=== PATIENT | female | born 1985 | race Caucasian/White ===

== ENCOUNTER → 2018-06-08 08:55 | Outpatient (CLI) | payer OTHER, SELFPAY | PROVIDERS: Visit Provider Obstetrics & Gynecology | DX: Z34.91 Encounter for supervision of normal pregnancy, unspecified, first trimester (principal); Z3A.00 Weeks of gestation of pregnancy not specified ==

== ENCOUNTER → 2018-06-14 08:51 | Outpatient (CLI) | payer OTHER, SELFPAY ==
[2018-06-14 10:15] LABS: Add Manual Diff / Slide Review NO; Basophils Percent Auto 0.2 % (0-2); Eosinophils Percent Auto 1.2 % (2-4); Hemoglobin 14.5 g/dL (12.0-16.0); Lymphocytes Percent Auto 18.2 % (25-40); Mean Corpuscular HGB Conc 35.4 % (30-36); Mean Corpuscular Hemoglobin 33.3 PG (26-34); Mean Corpuscular Volume 94.2 fL (80-100); Monocytes Percent Auto 4.9 % (3-14); Neutrophils Absolute Auto 5800 /uL (3000-5900); Neutrophils Percent Auto 75.5 % (50-75); Platelet Count 182 X10^3/uL (150-400); Red Blood Cell Count 4.36 X10^6/uL (4.0-5.2); Red Cell Distribution Width 12.4 % (11.6-14.8); White Blood Cell Count 7.6 X10^3/uL (4.5-11.0)
[2018-06-14 10:40] LABS: Hepatitis B Surface Antigen NEGATIVE s/c (NEGATIVE)
[2018-06-14 11:04] LABS: HIV 1 and 2 Antibody NEGATIVE (NEGATIVE); Hep C Virus Ab w/Reflex Quant NEGATIVE s/c (NEGATIVE)
[2018-06-14 11:20] LABS: Appearance Urine UA CLEAR; Bilirubin Urine UA NEGATIVE (NEGATIVE); Color Urine UA YELLOW; Glucose Urine UA NEGATIVE (Normal); Ketones Urine UA NEGATIVE (NEGATIVE); Leukocyte Esterase Urine UA NEGATIVE (NEGATIVE); Nitrite Urine UA NEGATIVE (Negative); Occult Blood Urine UA NEGATIVE (Negative); Protein Urine UA NEGATIVE (Negative); Urobilinogen Urine UA 0.2 E.U./dL (0.2)
[2018-06-15 11:39] LABS: RPR Screen Nonreactive (Nonreactive)
[2018-06-15 14:09] LABS: HSV1IGG 1.99 index (< 0.90)
== END ==
PROVIDERS: Visit Provider Obstetrics & Gynecology
DX: Z34.91 Encounter for supervision of normal pregnancy, unspecified, first trimester (principal)
CPT/HCPCS: 36415; 80055; 81003; 81507; 86695; 86696; 86703; 86787; 86803; 86850; 86900; 86901

== ENCOUNTER → 2018-06-16 16:08 | Outpatient (CLI) | payer OTHER, SELFPAY ==
--- NOTE | 2018-06-16 10:03 | DI.US.S_ITS ---
PROCEDURE: US OB LIMITED INDICATIONS: Viability and Dating OUTSIDE/PRIOR DATING DATA: Last menstrual period (LMP): 03/07/18. LMP-based estimated date of delivery (NICOLAS): 11/23/18. First dating scan (date and location): 06/16/18. Estimated date of delivery (NICOLAS) from first dating scan: 12/10/18. TECHNIQUE: Real-time scanning was performed of the fetus, with image documentation. Endovaginal scanning: No COMPARISON: None. FINDINGS: A single living intrauterine gestation is present. Presentation: Variable. Placenta: Placental position is anterior , without previa. Amniotic fluid index: Subjectively normal. heart rate: 153 beats per minute. Maternal cervical canal: 4.1 cm long. Normal lower limit is 2.5 cm. Estimated gestational age from today's scan: 14 weeks 5 days based on biparietal diameter, head circumference, abdominal circumference and femur length.. IMPRESSION: 1. 14 week 5 day single living IUP. Followup anatomic survey recommended. Dictated by: Roldan Stuart [facility] Interpreted: Deny Sims MD on 06/17/2018 at 12:03 Approved by: Deny Sims M.D. on 06/17/2018 at 12:25
== END ==
PROVIDERS: Visit Provider Obstetrics & Gynecology
DX: Z34.02 Encounter for supervision of normal first pregnancy, second trimester (principal); Z3A.14 14 weeks gestation of pregnancy
CPT/HCPCS: 76815

== ENCOUNTER → 2018-06-24 15:02 | Outpatient (CLI) | payer OTHER, SELFPAY ==
[2018-07-06 13:27] LABS: Informaseq SEE SEPERATE REPORT
== END ==
PROVIDERS: Visit Provider Obstetrics & Gynecology
DX: O09.529 Supervision of elderly multigravida, unspecified trimester (principal)
CPT/HCPCS: 36415; 81507

== ENCOUNTER → 2018-08-06 15:27 | Outpatient (CLI) | payer OTHER, SELFPAY ==
--- NOTE | 2018-08-06 15:30 | DI.US.S_ITS ---
PROCEDURE: US OB >= 14 WEEKS FETUS INDICATIONS: anatomy survey OUTSIDE/PRIOR DATING DATA: Last menstrual period (LMP): 03/07/18. LMP-based estimated date of delivery (NICOLAS): 11/23/18. First dating scan (date and location): 06/16/18. Estimated date of delivery (NICOLAS) from first dating scan: 12/10/18. TECHNIQUE: Real-time scanning was performed of the fetus, with image documentation and biometric measurements. Endovaginal scanning: No COMPARISON: None. FINDINGS: General: A single living intrauterine gestation is present. Presentation: Vertex. Placenta: Placental position is anterior, without previa. Amniotic fluid index: 15.6 cm, normal range is 5-24 cm. heart rate: 147 beats per minute. Maternal cervical canal: 4.0 cm long. Normal lower limit is 2.5 cm. biometrics: Biparietal diameter: 21 weeks 3 days Head circumference: 21 weeks 4 days Abdominal circumference: 20 weeks 4 days Femur length: 21 weeks 4 days Estimated gestational age from initial scan: not applicable. Composite gestational age from present scan: 21 weeks 2 days Estimated weight and percentile: 401 g; 10 percentile Measurement variability for biometric dating: +/- 7 days from 14 weeks to 15 weeks 6 days gestation, +/- 10 days from 16 weeks to 21 weeks 6 days gestation, +/- 2 weeks from 22 weeks to 27 weeks 6 days gestation, +/- 3 weeks for 28 weeks gestation or later. weight reference: 4500 g or EFW >90/95% is considered macrosomia or large for gestational age. EFW <10% is small for gestational age. EFW 5% or less is considered intra-uterine growth restriction. Anatomic survey: Neuro: Ventricles are non-dilated at less than 10 mm. Cisterna magna is normal at 3-11 mm. Cerebellum is normal in size and morphology. Nuchal skin fold: Normal at less than 6 mm between 14-21 weeks gestational age. Face: Nose and lips, facial profile are normal. Spine: No evidence for spina bifida. Heart: 4-chambered heart is present, with normal ventricular outflow tracts. Diaphragm: Diaphragm is intact. Stomach: Left-sided stomach is present. Kidneys: No hydronephrosis. Normal is less than 5 mm in 2nd trimester, less than 7 mm in 3rd trimester. Cord: 3-vessel cord has orthotopic insertion. Bladder: Normal in size. Extremities: All 4 extremities identified. IMPRESSION: Single living fetus redemonstrated and interval growth lower limits of normal. Normal anatomic survey. Dictated by: Roldan Stuart [facility] Interpreted: Hadley Saul MD on 08/06/2018 at 16:47 Approved by: Hadley Saul M.D. on 08/06/2018 at 19:02
== END ==
PROVIDERS: Visit Provider Obstetrics & Gynecology
DX: Z36.89 Encounter for other specified antenatal screening (principal); Z34.82 Encounter for supervision of other normal pregnancy, second trimester; Z3A.21 21 weeks gestation of pregnancy
CPT/HCPCS: 76811

== ENCOUNTER → 2018-08-12 16:04 | Outpatient (CLI) | payer OTHER, SELFPAY ==
[2018-08-12 20:35] LABS: Urine N gonorrhoeae NOT DETECTED
[2018-08-12 22:44] LABS: Urine Chlamydia NOT DETECTED
[2018-08-19 09:00] LABS: AFP, Serum 77.9 ng/mL; Calc Gestational Age 22.7; Maternal Weight 145 lbs; Number of Fetuses 1; Prev Pregnancies Down Syndrome NOT GIVEN; Risk of ONTD UNAVAILABLE
== END ==
PROVIDERS: Visit Provider Obstetrics & Gynecology
DX: O09.529 Supervision of elderly multigravida, unspecified trimester (principal); Z3A.22 22 weeks gestation of pregnancy; Z34.82 Encounter for supervision of other normal pregnancy, second trimester
CPT/HCPCS: 36415; 82105; 87491; 87591

== ENCOUNTER → 2018-09-24 13:35 | Outpatient (CLI) | payer OTHER, SELFPAY ==
[2018-09-24 15:19] LABS: Hematocrit 37.1 % (36-46); Hemoglobin 12.9 g/dL (12.0-16.0)
[2018-09-24 15:30] LABS: GTT (PREG) 1 Hour PP 50gm Dose 160 mg/dL (76-139)
== END ==
PROVIDERS: Visit Provider Obstetrics & Gynecology
DX: Z3A.27 27 weeks gestation of pregnancy (principal)
CPT/HCPCS: 36415; 82950; 85014; 85018

== ENCOUNTER → 2018-10-08 08:44 | Outpatient (CLI) | payer OTHER, SELFPAY ==
[2018-10-08 09:22] LABS: Glucose Fasting Gestational 80 mg/dL (76-95)
[2018-10-08 11:13] LABS: Glucose 1 Hour Gest 110 mg/dL (76-180)
[2018-10-08 11:30] LABS: Glucose 2 Hour Gest 121 mg/dL (76-155)
[2018-10-08 12:03] LABS: Glucose Tol Interp,Gestational INTERPRETATION
[2018-10-08 12:38] LABS: Glucose 3 Hour Gest 97 mg/dL (76-140)
== END ==
PROVIDERS: Visit Provider Obstetrics & Gynecology
DX: O99.810 Abnormal glucose complicating pregnancy (principal)
CPT/HCPCS: 36415; 82951; 82952

== ENCOUNTER 2018-11-10 07:33 | Emergency (ER) | payer OTHER, SELFPAY ==
[2018-11-10 07:53] VITALS: BP 109/69; PULSE 109; RESP 20; TEMP 36.1; O2SAT 97
--- NOTE | 2018-11-10 08:03 | DI.US.S_ITS ---
PROCEDURE: US OB LIMITED INDICATIONS: SEVERE CRAMPING, @ 35 OUTSIDE/PRIOR DATING DATA: Last menstrual period (LMP): 03/07/18. LMP-based estimated date of delivery (NICOLAS): 12/12/18. First dating scan (date and location): 06/16/18. Estimated date of delivery (NICOLAS) from first dating scan: 12/10/18. TECHNIQUE: Real-time scanning was performed of the fetus, with image documentation. COMPARISON: [facility], OB LIMITED, 06/16/2018, 16:41. FINDINGS: A single living intrauterine gestation is present. Presentation: Vertex Placenta: Placental position is anterior fundal, without previa. Amniotic fluid index: 13.7 cm, normal range is 5-24 cm. heart rate: 155 beats per minute. Maternal cervical canal: The cervix was not well seen secondary to the adjacent head. The visualized portions the cervix appeared closed without endocervical fluid. Estimated gestational age from initial scan: 35 weeks 3 days. IMPRESSION: 1. Single living intrauterine in vertex position redemonstrated. 2. Limited visualization of the cervix demonstrates no definite endocervical fluid. 3. GAVI within normal limits. Dictated by: Yefri Griffin M.D. on 11/10/2018 at 9:10 Approved by: Yefri Griffin M.D. on 11/10/2018 at 9:24
[2018-11-10] MEDS: SODIUM CHLORIDE 0.9% 1,000 ML 1000 ML IV ×2 (08:21→09:02)
[2018-11-10] MEDS: ONDANSETRON 4 MG/2 ML INJ IV (08:21)
--- NOTE | 2018-11-10 08:22 | ED.NAVMDI ---
HPI - Nausea/Vomiting/Diarrhea General Chief complaint: Nausea/Vomiting/Diarrhea Stated complaint: NAUSEA, CRAMPING, DIARHREA, VOMITING Time Seen by Provider: 11/10/18 07:35 Source: patient and family Mode of arrival: ambulatory Limitations: no limitations History of Present Illness HPI Narrative: 33-year-old female nonsmoker otherwise healthy is a at 35 weeks with a normal this time around. Her last was complicated by labor. She presents to us with a chief complaint of nausea vomiting and a few episodes of diarrhea that started last evening. She denies any fever or chills. She denies dysuria, frequency or urgency. She has had no chest pain, shortness of breath or cough. She has had no vaginal bleeding or discharge. She has had no leakage of fluids. Her pain is crampy and episodically sharp and stabbing MD complaint: nausea, vomiting, diarrhea and abdominal pain Onset (ago): hour(s) Description of Vomiting: food contents Description of Diarrhea: watery Associated Abdominal Pain: Yes Location of pain: diffuse Radiation: diffuse Severity: moderate Quality: cramping and stabbing Pain Consistency: intermittent Relieving factors: none Exacerbating factors: none Associated symptoms: denies other symptoms Related Data Home Medications Medication Instructions Recorded Confirmed 1 tab PO DAILY 06/14/18 06/14/18 vitamin,calcium,pqjrvehq-excr-fycwi acid tablet Previous Rx's Medication Instructions Recorded ondansetron 4 mg PO TID-QID PRN #10 tab 11/10/18 ondansetron 4 mg PO TID-QID PRN #10 tab 11/10/18 Allergies Allergy/AdvReac Type Severity Reaction Status Date / Time No Known Drug Allergies Allergy Unverified 06/14/18 08:50 Review of Systems Constitutional Denies chills, Denies fever(s), Denies lethargy and Denies weakness Eyes Denies change in vision, Denies eye discharge, Denies irritation and Denies loss of vision ENT Ears, Nose, Mouth, and Throat: Denies change in voice, Denies neck pain and Denies sore throat Cardiovascular Denies chest pain, Denies irregular heart rhythm, Denies lightheadedness, Denies palpitations, Denies dyspnea, Denies dyspnea on exertion and Denies orthopnea Respiratory Denies cough, Denies dyspnea, Denies dyspnea on exertion and Denies wheezing Gastrointestinal Gastrointestinal: Reports abdominal pain, Denies change in bowel habits, Reports diarrhea, Reports nausea and Reports vomiting Genitourinary Denies hematuria, Denies flank pain, Denies urinary incontinence and Denies urinary urgency Musculoskeletal Denies neck pain Integumentary/Breasts Denies pruritus, Denies erythema, Denies rash and Denies wounds Neurologic Denies confusion, Denies loss of vision and Denies weakness Psychiatric Denies anxiety, Denies confusion, Denies depression, Denies homicidal ideation and Denies suicidal ideation Endocrine Denies palpitations Hematologic/Lymphatic Denies easy bruising Allergic/Immunologic Denies wheezing PFSH Social History Smoking Status: Never smoker Social History Smoking Status: Never smoker Exam Narrative Exam Narrative: GENERAL: 33-year-old female is obviously feeling quite uncomfortable, holding an emesis bag HEAD: Atraumatic. Normocephalic. No temporal or scalp tenderness. EYES: Pupils equal round and reactive. Extraocular motions intact. ENT: Nose without bleeding, purulent drainage or septal hematoma. Throat without erythema, tonsillar hypertrophy or exudate. Uvula midline. Airway patent. NECK: Trachea midline. No JVD or lymphadenopathy. Supple, nontender, no meningeal signs. CARDIOVASCULAR: Regular rate and rhythm without murmurs, gallops, or rubs. RESPIRATORY: Clear to auscultation. Breath sounds equal bilaterally. No wheezes, rales, or rhonchi. GASTROINTESTINAL: Abdomen soft, gravid with fundus above the umbilicus, increased bowel sounds EXTREMITIES: No clubbing, cyanosis, or edema. No joint tenderness, effusion, or edema noted. BACK: Nontender without deformity or crepitance. No flank tenderness. NEURO: AOx3. SKIN: No rash or erythema. Initial Vital Signs Initial Vital Signs: Vital Signs Temperature 97.0 F L 11/10/18 07:53 Pulse Rate 109 H 11/10/18 07:53 Respiratory Rate 20 11/10/18 07:53 Blood Pressure 109/69 11/10/18 07:53 Pulse Oximetry 97 11/10/18 07:53 Course Orders Ordered: Discontinued Medications Sodium Chloride (Normal Saline 0.9%) 1,000 mls @ 1,000 mls/hr IV BOLUS ONE Stop: 11/10/18 09:02 Last Infusion: 11/10/18 09:00 Dose: 0 mls/hr Admin: 11/10/18 08:21 Dose: 1,000 mls/hr Sodium Chloride (Normal Saline 0.9%) 1,000 mls @ 1,000 mls/hr IV BOLUS ONE Stop: 11/10/18 09:59 Last Infusion: 11/10/18 10:05 Dose: 0 mls/hr Admin: 11/10/18 09:02 Dose: 1,000 mls/hr Ondansetron HCl (Zofran) 4 mg IV Q4HR PRN PRN Reason: Nausea And Vomiting Last Admin: 11/10/18 08:21 Dose: 4 mg Vital Signs - 8 hr 11/10/18 07:53 Temperature 97.0 F L Pulse Rate 109 H Respiratory Rate 20 Blood Pressure 109/69 Pulse Oximetry 97 MDM - Nausea/Vomiting/Diarrhea Medical Records Attestation: I reviewed the patient's medical records. Lab Data Attestation: I reviewed the patient's lab results. Result diagrams: 11/10/18 08:15 11/10/18 08:15 Lab Results 11/10/18 11/10/18 11/10/18 Range/Units 08:15 08:15 08:20 WBC 13.8 H (4.5-11.0) X10^3/uL RBC 4.38 (4.0-5.2) X10^6/uL Hgb 14.3 (12.0-16.0) g/dL Hct 42.0 (36-46) % MCV 95.9 (80-100) fL MCH 32.7 (26-34) PG MCHC 34.1 (30-36) % RDW 12.7 (11.6-14.8) % Plt Count 169 (150-400) X10^3/uL Neut % (Auto) 90.8 H (50-75) % Lymph % (Auto) 4.4 L (25-40) % [place] % (Auto) 4.2 (3-14) % Eos % (Auto) 0.4 L (2-4) % Baso % (Auto) 0.2 (0-2) % Neut # (Auto) 24808 H (5564-6518) /uL Lymph # (Auto) 600 L (0104-0437) /uL [place] # (Auto) 600 (0-900) /uL Eos # (Auto) 100 (0-450) /uL Baso # (Auto) 0 (0-100) /uL Sodium 134 L (137-145) mmol/L Potassium 4.0 (3.4-5.1) mmol/L Chloride 102 (98-107) mmol/L Carbon Dioxide 23 (22-32) mmol/L BUN 10 (7-17) mg/dL Creatinine 0.60 (0.52-1.04) mg/dL Estimated GFR > 60.0 (>60) mL/min BUN/Creatinine Ratio 16.7 (6-22) Glucose 90 (70-100) mg/dL Calcium 8.6 (8.4-10.2) mg/dL Urine RBC None seen (0-5/HPF) Urine WBC 5-10/hpf H (0-5/HPF) Ur Squamous Epith Cells 5-10 /hpf H Urine Bacteria None seen (None) Ur Culture Indicated? Cult not indicated Influenza A & B (PCR) (Negative) 11/10/18 Range/Units 08:35 WBC (4.5-11.0) X10^3/uL RBC (4.0-5.2) X10^6/uL Hgb (12.0-16.0) g/dL Hct (36-46) % MCV (80-100) fL MCH (26-34) PG MCHC (30-36) % RDW (11.6-14.8) % Plt Count (150-400) X10^3/uL Neut % (Auto) (50-75) % Lymph % (Auto) (25-40) % [place] % (Auto) (3-14) % Eos % (Auto) (2-4) % Baso % (Auto) (0-2) % Neut # (Auto) (0576-1618) /uL Lymph # (Auto) (7547-9409) /uL [place] # (Auto) (0-900) /uL Eos # (Auto) (0-450) /uL Baso # (Auto) (0-100) /uL Sodium (137-145) mmol/L Potassium (3.4-5.1) mmol/L Chloride (98-107) mmol/L Carbon Dioxide (22-32) mmol/L BUN (7-17) mg/dL Creatinine (0.52-1.04) mg/dL Estimated GFR (>60) mL/min BUN/Creatinine Ratio (6-22) Glucose (70-100) mg/dL Calcium (8.4-10.2) mg/dL Urine RBC (0-5/HPF) Urine WBC (0-5/HPF) Ur Squamous Epith Cells Urine Bacteria (None) Ur Culture Indicated? Influenza A & B (PCR) Negative (Negative) Urine Dip Bedside Urine Glucose Negative Bedside Urine Bilirubin + 1 Bedside Urine Ketone +/- 5 Urine Specific [place] 1.010 Bedside Urine Occult Blood - Negative Bedside Urine pH 7.5 Bedside Urine Protein + 30 Bedside Urine Urobilinogen - Negative Bedside Urine Nitrite - Negative Bedside Urine Leukocytes +/- 15 Esterase MDM Narrative Medical decision making narrative: Otherwise healthy at 35 weeks presents with nausea, vomiting, diarrhea and abdominal cramping. Initial discussion with labor and delivery made it clear that evaluation and treatment in the emergency department is the most appropriate place. She denied any organized contractions nor vaginal bleeding or discharge. Patient felt tremendous relief after IV fluids. She denies dysuria, frequency or urgency. Patient had evaluation by Labor and delivery with no abnormal findings. Ultrasound was unremarkable. Initial urine suggested the possibility of UTI but official UA was much less convincing, culture not even indicated. Discharge Plan Departure Patient Disposition: Home Clinical Impression: Gastroenteritis Discharge Date/Time: 11/10/18 11:13 Interventions: ED Discharge Assessment Last Done: 11/10/18 11:02 Instructions: DI for Dehydration -- Adult Activity Restrictions/Additional Instructions: 1. Drink plenty of fluids with frequent small sips. 2. For the next 24 hours a clear liquid diet is advised. After that please employ a brat diet which would include bananas, rice, apples, toast. 3. Please take medications as directed. 4. Please follow-up with your doctor in the next 1-2 days. Call the office for an appointment. 5. Please return to the emergency Department for any worsening or persistent symptoms, such as increasing pain or fever. Prescriptions: New ondansetron 4 mg tablet,disintegrating 4 mg PO TID-QID PRN (Reason: nausea and vomiting) Qty: 10 RF: 0 ondansetron 4 mg tablet,disintegrating 4 mg PO TID-QID PRN (Reason: nausea and vomiting) Qty: 10 RF: 0 No Action prenat.vits,sarah,[id number] [ Vitamin] tablet 1 tab PO DAILY RF: 0 Referrals: Tami Alfred MD [Physician] -
[2018-11-10 08:24] LABS: Add Manual Diff / Slide Review NO; Basophils Absolute Auto 0 /uL (0-100); Basophils Percent Auto 0.2 % (0-2); Eosinophils Absolute Auto 100 /uL (0-450); Eosinophils Percent Auto 0.4 % (2-4); Hemoglobin 14.3 g/dL (12.0-16.0); Lymphocytes Absolute Auto 600 /uL (1100-4500); Lymphocytes Percent Auto 4.4 % (25-40); Mean Corpuscular HGB Conc 34.1 % (30-36); Mean Corpuscular Hemoglobin 32.7 PG (26-34); Mean Corpuscular Volume 95.9 fL (80-100); Monocytes Absolute Auto 600 /uL (0-900); Monocytes Percent Auto 4.2 % (3-14); Neutrophils Absolute Auto 12600 /uL (1500-7000); Neutrophils Percent Auto 90.8 % (50-75); Platelet Count 169 X10^3/uL (150-400); Red Blood Cell Count 4.38 X10^6/uL (4.0-5.2); Red Cell Distribution Width 12.7 % (11.6-14.8); White Blood Cell Count 13.8 X10^3/uL (4.5-11.0)
--- NOTE | 2018-11-10 08:26 | ED_ITS ---
HPI - Nausea/Vomiting/Diarrhea General Chief complaint: Nausea/Vomiting/Diarrhea Stated complaint: NAUSEA, CRAMPING, DIARHREA, VOMITING Time Seen by Provider: 11/10/18 07:35 Source: patient and family Mode of arrival: ambulatory Limitations: no limitations History of Present Illness HPI Narrative: 33-year-old female nonsmoker otherwise healthy is a at 35 weeks with a normal this time around. Her last was complicated by labor. She presents to us with a chief complaint of nausea vomiting and a few episodes of diarrhea that started last evening. She denies any fever or chills. She denies dysuria, frequency or urgency. She has had no chest pain, shortness of breath or cough. She has had no vaginal bleeding or discharge. She has had no leakage of fluids. Her pain is crampy and episodically sharp and stabbing MD complaint: nausea, vomiting, diarrhea and abdominal pain Onset (ago): hour(s) Description of Vomiting: food contents Description of Diarrhea: watery Associated Abdominal Pain: Yes Location of pain: diffuse Radiation: diffuse Severity: moderate Quality: cramping and stabbing Pain Consistency: intermittent Relieving factors: none Exacerbating factors: none Associated symptoms: denies other symptoms Related Data Home Medications Medication Instructions Recorded Confirmed 1 tab PO DAILY 06/14/18 06/14/18 vitamin,calcium,ycamgdht-gnde-bxiqa acid tablet Previous Rx's Medication Instructions Recorded ondansetron 4 mg PO TID-QID PRN #10 tab 11/10/18 ondansetron 4 mg PO TID-QID PRN #10 tab 11/10/18 Allergies Allergy/AdvReac Type Severity Reaction Status Date / Time No Known Drug Allergies Allergy Unverified 06/14/18 08:50 Review of Systems Constitutional Denies chills, Denies fever(s), Denies lethargy and Denies weakness Eyes Denies change in vision, Denies eye discharge, Denies irritation and Denies loss of vision ENT Ears, Nose, Mouth, and Throat: Denies change in voice, Denies neck pain and Den ies sore throat Cardiovascular Denies chest pain, Denies irregular heart rhythm, Denies lightheadedness, Denies palpitations, Denies dyspnea, Denies dyspnea on exertion and Denies orthopnea Respiratory Denies cough, Denies dyspnea, Denies dyspnea on exertion and Denies wheezing Gastrointestinal Gastrointestinal: Reports abdominal pain, Denies change in bowel habits, Reports diarrhea, Reports nausea and Reports vomiting Genitourinary Denies hematuria, Denies flank pain, Denies urinary incontinence and Denies urinary urgency Musculoskeletal Denies neck pain Integumentary/Breasts Denies pruritus, Denies erythema, Denies rash and Denies wounds Neurologic Denies confusion, Denies loss of vision and Denies weakness Psychiatric Denies anxiety, Denies confusion, Denies depression, Denies homicidal ideation and Denies suicidal ideation Endocrine Denies palpitations Hematologic/Lymphatic Denies easy bruising Allergic/Immunologic Denies wheezing PFS Social History Smoking Status: Never smoker Social History Smoking Status: Never smoker Exam Narrative Exam Narrative: GENERAL: 33-year-old female is obviously feeling quite uncomfortable, holding an emesis bag HEAD: Atraumatic. Normocephalic. No temporal or scalp tenderness. EYES: Pupils equal round and reactive. Extraocular motions intact. ENT: Nose without bleeding, purulent drainage or septal hematoma. Throat without erythema, tonsillar hypertrophy or exudate. Uvula midline. Airway patent. NECK: Trachea midline. No JVD or lymphadenopathy. Supple, nontender, no meningeal signs. CARDIOVASCULAR: Regular rate and rhythm without murmurs, gallops, or rubs. RESPIRATORY: Clear to auscultation. Breath sounds equal bilaterally. No wheezes, rales, or rhonchi. GASTROINTESTINAL: Abdomen soft, gravid with fundus above the umbilicus, increased bowel sounds EXTREMITIES: No clubbing, cyanosis, or edema. No joint tenderness, effusion, or edema noted. BACK: Nontender without deformity or crepitance. No flank tenderness. NEURO: AOx3. SKIN: No rash or erythema. Initial Vital Signs Initial Vital Signs: Vital Signs Temperature 97.0 F L 11/10/18 07:53 Pulse Rate 109 H 11/10/18 07:53 Respiratory Rate 20 11/10/18 07:53 Blood Pressure 109/69 11/10/18 07:53 Pulse Oximetry 97 11/10/18 07:53 Course Orders Ordered: Discontinued Medications Sodium Chloride (Normal Saline 0.9%) 1,000 mls @ 1,000 mls/hr IV BOLUS ONE Stop: 11/10/18 09:02 Last Infusion: 11/10/18 09:00 Dose: 0 mls/hr Admin: 11/10/18 08:21 Dose: 1,000 mls/hr Sodium Chloride (Normal Saline 0.9%) 1,000 mls @ 1,000 mls/hr IV BOLUS ONE Stop: 11/10/18 09:59 Last Infusion: 11/10/18 10:05 Dose: 0 mls/hr Admin: 11/10/18 09:02 Dose: 1,000 mls/hr Ondansetron HCl (Zofran) 4 mg IV Q4HR PRN PRN Reason: Nausea And Vomiting Last Admin: 11/10/18 08:21 Dose: 4 mg Vital Signs - 8 hr 11/10/18 07:53 Temperature 97.0 F L Pulse Rate 109 H Respiratory Rate 20 Blood Pressure 109/69 Pulse Oximetry 97 MDM - Nausea/Vomiting/Diarrhea Medical Records Attestation: I reviewed the patient's medical records. Lab Data Attestation: I reviewed the patient's lab results. Result diagrams: 11/10/18 08:15 11/10/18 08:15 Lab Results 11/10/18 11/10/18 11/10/18 Range/Units 08:15 08:15 08:20 WBC 13.8 H (4.5-11.0) X10^3/uL RBC 4.38 (4.0-5.2) X10^6/uL Hgb 14.3 (12.0-16.0) g/dL Hct 42.0 (36-46) % MCV 95.9 (80-100) fL MCH 32.7 (26-34) PG MCHC 34.1 (30-36) % RDW 12.7 (11.6-14.8) % Plt Count 169 (150-400) X10^3/uL Neut % (Auto) 90.8 H (50-75) % Lymph % (Auto) 4.4 L (25-40) % [place] % (Auto) 4.2 (3-14) % Eos % (Auto) 0.4 L (2-4) % Baso % (Auto) 0.2 (0-2) % Neut # (Auto) 92521 H (9606-6913) /uL Lymph # (Auto) 600 L (3501-0233) /uL Blair # (Auto) 600 (0-900) /uL Eos # (Auto) 100 (0-450) /uL Baso # (Auto) 0 (0-100) /uL Sodium 134 L (137-145) mmol/L Potassium 4.0 (3.4-5.1) mmol/L Chloride 102 (98-107) mmol/L Carbon Dioxide 23 (22-32) mmol/L BUN 10 (7-17) mg/dL Creatinine 0.60 (0.52-1.04) mg/dL Estimated GFR > 60.0 (>60) mL/min BUN/Creatinine Ratio 16.7 (6-22) Glucose 90 (70-100) mg/dL Calcium 8.6 (8.4-10.2) mg/dL Urine RBC None seen (0-5/HPF) Urine WBC 5-10/hpf H (0-5/HPF) Ur Squamous Epith Cells 5-10 /hpf H Urine Bacteria None seen (None) Ur Culture Indicated? Cult not indicated Influenza A & B (PCR) (Negative) 11/10/18 Range/Units 08:35 WBC (4.5-11.0) X10^3/uL RBC (4.0-5.2) X10^6/uL Hgb (12.0-16.0) g/dL Hct (36-46) % MCV (80-100) fL MCH (26-34) PG MCHC (30-36) % RDW (11.6-14.8) % Plt Count (150-400) X10^3/uL Neut % (Auto) (50-75) % Lymph % (Auto) (25-40) % [place] % (Auto) (3-14) % Eos % (Auto) (2-4) % Baso % (Auto) (0-2) % Neut # (Auto) (9055-3077) /uL Lymph # (Auto) (2857-4949) /uL [place] # (Auto) (0-900) /uL Eos # (Auto) (0-450) /uL Baso # (Auto) (0-100) /uL Sodium (137-145) mmol/L Potassium (3.4-5.1) mmol/L Chloride (98-107) mmol/L Carbon Dioxide (22-32) mmol/L BUN (7-17) mg/dL Creatinine (0.52-1.04) mg/dL Estimated GFR (>60) mL/min BUN/Creatinine Ratio (6-22) Glucose (70-100) mg/dL Calcium (8.4-10.2) mg/dL Urine RBC (0-5/HPF) Urine WBC (0-5/HPF) Ur Squamous Epith Cells Urine Bacteria (None) Ur Culture Indicated? Influenza A & B (PCR) Negative (Negative) Urine Dip Bedside Urine Glucose Negative Bedside Urine Bilirubin + 1 Bedside Urine Ketone +/- 5 Urine Specific [place] 1.010 Bedside Urine Occult Blood - Negative Bedside Urine pH 7.5 Bedside Urine Protein + 30 Bedside Urine Urobilinogen - Negative Bedside Urine Nitrite - Negative Bedside Urine Leukocytes +/- 15 Esterase MDM Narrative Medical decision making narrative: Otherwise healthy at 35 weeks presents with nausea, vomiting, diarrhea and abdominal cramping. Initial discussion with labor and delivery made it clear that evaluation and treatment in the emergency department is the most appropriate place. She denied any organized contractions nor vaginal bleeding or discharge. Patient felt tremendous relief after IV fluids. She denies dysuria, frequency or urgency. Patient had evaluation by Labor and delivery with no abnormal findings. Ultrasound was unremarkable. Initial urine suggested the possibility of UTI but official UA was much less convincing, culture not even indicated. Discharge Plan Departure Patient Disposition: Home Clinical Impression: Gastroenteritis Discharge Date/Time: 11/10/18 11:13 Interventions: ED Discharge Assessment Last Done: 11/10/18 11:02 Instructions: DI for Dehydration -- Adult Activity Restrictions/Additional Instructions: 1. Drink plenty of fluids with frequent small sips. 2. For the next 24 hours a clear liquid diet is advised. After that please employ a brat diet which would include bananas, rice, apples, toast. 3. Please take medications as directed. 4. Please follow-up with your doctor in the next 1-2 days. Call the office for an appointment. 5. Please return to the emergency Department for any worsening or persistent symptoms, such as increasing pain or fever. Prescriptions: New ondansetron 4 mg tablet,disintegrating 4 mg PO TID-QID PRN (Reason: nausea and vomiting) Qty: 10 RF: 0 ondansetron 4 mg tablet,disintegrating 4 mg PO TID-QID PRN (Reason: nausea and vomiting) Qty: 10 RF: 0 No Action prenat.vits,sarah,[id number] [ Vitamin] tablet 1 tab PO DAILY RF: 0 Referrals: Tami Alfred MD [Physician] -
[2018-11-10 08:32] LABS: Bacteria Urine None Seen; RBC Urine None Seen (0-5/HPF)
[2018-11-10 08:37] LABS: BUN Creatinine Ratio 16.7 (6-22); Blood Urea Nitrogen 10 mg/dL (7-17); Calcium 8.6 mg/dL (8.4-10.2); Carbon Dioxide 23 mmol/L (22-32); Chloride 102 mmol/L (98-107); Estimated Glomerular Filt Rate > 60.0 mL/min (>60); Glucose 90 mg/dL (70-100); HEMOLYSIS < 15 (0-50); Sodium 134 mmol/L (137-145)
[2018-11-10 08:43] LABS: Culture Indicated Urine Cult Not Indicated; Squamous Epithelial Cell Urine 5-10 /HPF; WBC Urine 5-10/HPF (0-5/HPF)
[2018-11-10 09:03] LABS: Influenza A and B by PCR Rapid Negative (Negative)
[2018-11-10 11:02] VITALS: BP 89/54; PULSE 85; RESP 15; O2SAT 96
== END 2018-11-10 11:13 | disposition home or self-care (01) ==
PROVIDERS: Emergency Provider Emergency Medicine
DX: K52.9 Noninfective gastroenteritis and colitis, unspecified (principal); Z3A.35 35 weeks gestation of pregnancy
CPT/HCPCS: 36591; 76815; 80048; 81003; 81015; 85025; 87400; 96361; 96374; 99283; 99284; J2405

== ENCOUNTER → 2018-11-15 16:07 | Outpatient (CLI) | payer OTHER, SELFPAY ==
[2018-11-15 21:58] LABS: Strep Grp B PCR NEG for Grp B Strep
== END ==
PROVIDERS: Visit Provider Obstetrics & Gynecology
DX: Z34.83 Encounter for supervision of other normal pregnancy, third trimester (principal)
CPT/HCPCS: 87653

== ENCOUNTER 2018-12-07 08:24 | Outpatient (CLI) | payer OTHER, SELFPAY ==
--- NOTE | 2018-12-07 09:30 | PM.OBTRLD ---
Visit Information Visit Information Date of evaluation: 12/07/18 Primary OB Provider: Tami Alfred Reason for Evaluation: Yes non-stress test non-stress test reason: other (low HR in office) [facility] Social History Smoking Status: Never smoker Evaluation Evaluation Baseline heart rate: 140 Variability: Moderate (11-25) monitor accelerations: Present monitor decelerations: Absent Category of Tracing: I Cervical dilation (cm): 2 Cervical effacement (%): 85 Diagnosis, Plan/Disposition Final Diagnosis (1) 39 weeks gestation of : Current Visit: Yes Status: Acute Plan/Disposition Plan: Discharge to home [facility] OB Disposition: home
== END 2018-12-07 09:20 | disposition home or self-care (01) ==
LOC: OB 12-09 10:45
PROVIDERS: Visit Provider Obstetrics & Gynecology
DX: O76 Abnormality in fetal heart rate and rhythm complicating labor and delivery (principal); Z3A.39 39 weeks gestation of pregnancy
CPT/HCPCS: 59025; G0378; G0379

== ENCOUNTER 2018-12-13 15:06 | Outpatient (CLI) | payer OTHER, SELFPAY ==
--- NOTE | 2018-12-13 15:45 | P.TNLD_ITS ---
Visit Information Visit Information Date of evaluation: 12/13/18 Primary OB Provider: Tami Alfred On-call OB Provider: Jennifer Deng Reason for Evaluation: Yes non-stress test non-stress test reason: other (Postdates) and Yes other [facility] Social History Smoking Status: Never smoker Evaluation Evaluation Baseline heart rate: 130 Variability: Moderate (11-25) monitor accelerations: Present monitor decelerations: Absent Contraction Frequency (minutes): 5 Diagnosis, Plan/Disposition Final Diagnosis (1) Postmaturity , 40-42 weeks gestation: Current Visit: Yes Status: Acute Plan/Disposition Plan: Home follow-up possible induction later this week OB Disposition: home
== END 2018-12-13 15:47 | disposition home or self-care (01) ==
LOC: LABOR 15:23 → OB 12-16 10:55
PROVIDERS: Visit Provider Obstetrics & Gynecology
DX: O48.0 Post-term pregnancy (principal); Z3A.40 40 weeks gestation of pregnancy
CPT/HCPCS: 59025; G0378; G0379

== ENCOUNTER 2018-12-16 15:15 | Inpatient (IN) | payer OTHER, SELFPAY ==
[2018-12-16] MEDS: LACTATED RINGERS 1,000 ML 100 ML IV (15:54)
[2018-12-16] MEDS: OXYTOCIN PREMIX 30 UNIT/500 ML PLAST..BAG IV (15:55)
[2018-12-16 15:59] VITALS: BP 120/77
[2018-12-16 16:12] LABS: Add Manual Diff / Slide Review NO; Basophils Absolute Auto 0 /uL (0-100); Basophils Percent Auto 0.4 % (0-2); Eosinophils Absolute Auto 200 /uL (0-450); Eosinophils Percent Auto 1.5 % (2-4); Hematocrit 41.9 % (36-46); Hemoglobin 14.8 g/dL (12.0-16.0); Lymphocytes Absolute Auto 1700 /uL (1100-4500); Lymphocytes Percent Auto 16.2 % (25-40); Mean Corpuscular HGB Conc 35.4 % (30-36); Mean Corpuscular Hemoglobin 33.5 PG (26-34); Mean Corpuscular Volume 94.7 fL (80-100); Monocytes Absolute Auto 900 /uL (0-900); Monocytes Percent Auto 8.6 % (3-14); Neutrophils Absolute Auto 7800 /uL (1500-7000); Neutrophils Percent Auto 73.3 % (50-75); Platelet Count 169 X10^3/uL (150-400); Red Blood Cell Count 4.43 X10^6/uL (4.0-5.2); White Blood Cell Count 10.7 X10^3/uL (4.5-11.0)
[2018-12-16] MEDS: LACTATED RINGERS 1,000 ML 125 ML IV (17:37)
[2018-12-16] MEDS: IBUPROFEN 600 MG TABLET PO (20:22)
[2018-12-17 04:15] LABS: Hematocrit 39.9 % (36-46)
[2018-12-17] MEDS: IBUPROFEN 600 MG TABLET PO ×3 (04:56→18:08)
[2018-12-17] MEDS: OXYCODONE/ACETAMINOPHEN 5/325 TABLET 2 TAB PO ×3 (07:50→18:02)
[2018-12-17] MEDS: DERMOPLAST SPRAY 20% 60 ML 1 SPRAY TOP (07:55)
[2018-12-17] MEDS: DOCUSATE 250 MG CAPSULE PO (09:11)
[2018-12-17] MEDS: PRENATAL VIT,CALC/IRON/FOLIC 1 TABLET 1 TAB PO (09:11)
--- NOTE | 2018-12-17 18:13 | PM.OBHP.1 ---
OB HPI Date/Time Date of admission: 12/16/18 Date Patient Seen: 12/16/18 Time Patient Seen: 15:15 History of Present Condition Chief complaint: OBSERVATION OF LABOR/INDUCTION : 3 Para: 2 Estimated Date of Delivery: 12/11/18 Estimated Gestational Age (weeks): 40+5 Narrative: Fany Richardson is a 33 year old female 3 para 2 at 40-,5/7 weeks gestation for induction of labor Comments: Patient had a history of baby with meconium aspiration syndrome when she went past her due date Indications Indication for induction OB: post dates History of Present care: good care, initiated at week # (16) and number of visits (10) Dating criteria: LMP confirmed by 2nd trimester US Ultrasounds: normal mid trimester US Obstetrical complications: none Medical complications: none Preadmission Labs Blood type: B (+) positive -: Antibody screen: negative, GBS status: negative, HBsAG: negative, HIV: negative, HSV 1: positive, HSV 2: positive and RPR/VDLR: negative -: Chlamydia screen: not detected and Gonorrhea screen: not detected -: Rubella: immune and Varicella: immune HCT: 37.1 HCAB: negative PAP: Normal Cell-free DNA: normal male Urine: negative 1 hr GTT: 160 3 hr GTT: 1 hr (110), 2 hr (121) and 3 hr (97) Fasting blood glucose: 80 Prior (ies) History: 2 1st one at 41 wks with MAS, in NICU for 13 days Evaluation Evaluation Baseline heart rate: 120 Variability: Moderate (11-25) monitor accelerations: Present monitor decelerations: Absent Category of Tracing: I Cervical dilation (cm): 5 Cervical effacement (%): 80 station: -1 Laboratory results: Laboratory Tests 12/16/18 12/16/18 12/17/18 15:50 15:50 03:40 WBC 10.7 RBC 4.43 Hgb 14.8 14.0 Hct 41.9 39.9 MCV 94.7 MCH 33.5 MCHC 35.4 RDW 13.0 Plt Count 169 Neut % (Auto) 73.3 Lymph % (Auto) 16.2 L [place] % (Auto) 8.6 Eos % (Auto) 1.5 L Baso % (Auto) 0.4 Neut # (Auto) 7800 H Lymph # (Auto) 1700 [place] # (Auto) 900 Eos # (Auto) 200 Baso # (Auto) 0 Blood Type B Positive Antibody Screen [facility] Social History Smoking Status: Never smoker Meds Home Medications Medication Instructions Recorded Confirmed Type 1 tab PO DAILY 06/14/18 12/16/18 History vitamin,calcium,zcefjxsx-myyh-rnuee acid tablet breast pump #1 each 12/17/18 Rx Allergies Allergy/AdvReac Type Severity Reaction Status Date / Time No Known Drug Allergies Allergy Verified 12/16/18 15:26 Exam Vital Signs (past 8 hours): Generally: No acute distress Lungs: Clear to auscultation bilaterally Cardiovascular: Regular rate and rhythm Fundal height: 41 cm Estimated weight 8-1/2 lb Extremities: Negative Homans, no edema Objective Labs Result Diagrams: 12/17/18 03:40 Labs: Laboratory Results - last 24 hr 12/17/18 03:40 Hgb 14.0 Hct 39.9 Assessment and Plan Assessment and Plan Assessment and Plan narrative: Assessment: 33-year-old 3 para 2 at 40-,5/7 weeks gestation for induction of labor History of meconium aspiration syndrome at 41 weeks gestation with 1st Plan: Pitocin per protocol 2 Artificial rupture of membranes once regular contractions Epidural as necessary Expected management to spontaneous vaginal delivery
--- NOTE | 2018-12-17 18:22 | P.HPOB_ITS ---
OB HPI Date/Time Date of admission: 12/16/18 Date Patient Seen: 12/16/18 Time Patient Seen: 15:15 History of Present Condition Chief complaint: OBSERVATION OF LABOR/INDUCTION : 3 Para: 2 Estimated Date of Delivery: 12/11/18 Estimated Gestational Age (weeks): 40+5 Narrative: Fany Richardson is a 33 year old female 3 para 2 at 40- ,5/7 weeks gestation for induction of labor Comments: Patient had a history of baby with meconium aspiration syndrome when s he went past her due date Indications Indication for induction OB: post dates History of Present care: good care, initiated at week # (16) and number of visits (10) Dating criteria: LMP confirmed by 2nd trimester US Ultrasounds: normal mid trimester US Obstetrical complications: none Medical complications: none Preadmission Labs Blood type: B (+) positive -: Antibody screen: negative, GBS status: negative, HBsAG: negative, HIV: negative, HSV 1: positive, HSV 2: positive and RPR/VDLR: negative -: Chlamydia screen: not detected and Gonorrhea screen: not detected -: Rubella: immune and Varicella: immune HCT: 37.1 HCAB: negative PAP: Normal Cell-free DNA: normal male Urine: negative 1 hr GTT: 160 3 hr GTT: 1 hr (110), 2 hr (121) and 3 hr (97) Fasting blood glucose: 80 Prior (ies) History: 2 1st one at 41 wks with MAS, in NICU for 13 days Evaluation Evaluation Baseline heart rate: 120 Variability: Moderate (11-25) monitor accelerations: Present monitor decelerations: Absent Category of Tracing: I Cervical dilation (cm): 5 Cervical effacement (%): 80 station: -1 Laboratory results: Laboratory Tests 12/16/18 12/16/18 12/17/18 15:50 15:50 03:40 WBC 10.7 RBC 4.43 Hgb 14.8 14.0 Hct 41.9 39.9 MCV 94.7 MCH 33.5 MCHC 35.4 RDW 13.0 Plt Count 169 Neut % (Auto) 73.3 Lymph % (Auto) 16.2 L [place] % (Auto) 8.6 Eos % (Auto) 1.5 L Baso % (Auto) 0.4 Neut # (Auto) 7800 H Lymph # (Auto) 1700 [place] # (Auto) 900 Eos # (Auto) 200 Baso # (Auto) 0 Blood Type B Positive Antibody Screen Negative [facility] Social History Smoking Status: Never smoker Meds Home Medications Medication Instructions Recorded Confirmed Type 1 tab PO DAILY 06/14/18 12/16/18 History vitamin,calcium,cxnewzhe-vqmn-jxgrz acid tablet breast pump #1 each 12/17/18 Rx Allergies Allergy/AdvReac Type Severity Reaction Status Date / Time No Known Drug Allergies Allergy Verified 12/16/18 15:26 Exam Vital Signs (past 8 hours): Generally: No acute distress Lungs: Clear to auscultation bilaterally Cardiovascular: Regular rate and rhythm Fundal height: 41 cm Estimated weight 8-1/2 lb Extremities: Negative Homans, no edema Objective Labs Result Diagrams: 12/17/18 03:40 Labs: Laboratory Results - last 24 hr 12/17/18 03:40 Hgb 14.0 Hct 39.9 Assessment and Plan Assessment and Plan Assessment and Plan narrative: Assessment: 33-year-old 3 para 2 at 40-,5/7 weeks gestation for induction of labor History of meconium aspiration syndrome at 41 weeks gestation with 1st Plan: Pitocin per protocol 2 Artificial rupture of membranes once regular contractions Epidural as necessary Expected management to spontaneous vaginal delivery
--- NOTE | 2018-12-17 18:22 | PM.OBPRVD ---
Delivery date: 12/17/18 Cervical ripening method: none Induction method: per pitocin protocol Delivery augmentation: rupture of membranes (Clear) Delivery monitor: external FHT and external uterine Route of delivery: Episiotomy description: None L&D Laceration Description: None Estimated blood loss (mL): 150 Anesthesia type: Epidural Complications: None Narrative: The patient was complete pushed for 5 minutes. At 6:54 p.m., a live male infant delivered spontaneously over an intact perineum. A nuchal cord x1 was reduced on the perineum. The remainder of the body delivered without difficulty and was placed on mom's abdomen. After the cord stopped pulsing, the cord was double clamped and cut. Cord bloods were obtained. the placenta delivered intact with a 3 vessel cord at 7:04 p.m.. Pitocin was given in the IV fluids prior to placental delivery. Estimated blood loss 150 cc. Fundus was firm. No lacerations. Apgars 8 at 1 minute and 9 at 5 minutes. Weight 8 lb 4.24 oz. . Epidural analgesia. Mom and stable to recovery. Plan for aftercare: To routine care
[2018-12-17 19:41] VITALS: BP 120/80; PULSE 104; RESP 16; TEMP 36.8
[2018-12-17 20:15] VITALS: BP 120/77
== END 2018-12-17 20:00 | disposition home or self-care (01) | DRG 807 ==
PROVIDERS: Admitting Provider Obstetrics & Gynecology; Visit Provider Obstetrics & Gynecology
DX: O48.0 Post-term pregnancy (principal); Z37.0 Single live birth; O69.81X0 Labor and delivery complicated by cord around neck, without compression, not applicable or unspecified; Z3A.40 40 weeks gestation of pregnancy
CPT/HCPCS: 01967; 36415; 59050; 59400; 85014; 85018; 85025; 86850; 86900; 86901; G0379; J2590